=== PATIENT | male | born 1995 | race Caucasian/White ===

== ENCOUNTER 2018-09-08 13:54 | Emergency (ER) | payer OTHER, MEDICAID, SELFPAY ==
[2018-09-08 14:01] VITALS: BP 141/82; PULSE 98; RESP 18; TEMP 36.8; O2SAT 100
--- NOTE | 2018-09-08 14:03 | DI.RAD.S_ITS ---
PROCEDURE: XR HAND LT MIN 3V INDICATIONS: nail embedded in hand TECHNIQUE: 3 views of the hand(s) acquired. COMPARISON: None. FINDINGS: Bones: Radiodensity in the shape of the nail is noted overlying the first digit with the distal tip projecting over the mid metacarpal and the proximal end overlying the distal first phalanx. It appears to be within the soft tissues and no osseous fractures identified. Soft tissues: No suspicious soft tissue calcifications. IMPRESSION: Radiodensity overlying the first digit most consistent with a nail. No visualized fracture. Dictated by: Lolita Juárez M.D. on 09/08/2018 at 13:38 Approved by: Lolita Juárez M.D. on 09/08/2018 at 13:39
[2018-09-08] MEDS: MORPHINE 4 MG/ML INJ IM ×2 (14:05→19:22)
--- NOTE | 2018-09-08 16:22 | ED.SKABFB ---
HPI - Skin/Abscess/Foreign Bdy <TEODORO Piper - Last Filed: 09/08/18 23:06> General Chief complaint: Skin/Abscess/Foreign Body Stated complaint: NAIL STUCK IN THUMB LT HAND Time Seen by Provider: 09/08/18 16:10 Source: patient and family Mode of arrival: ambulatory Limitations: no limitations History of Present Illness HPI narrative: Patient is a 22-year-old nonsmoker male who is and presents with his father for a chief complaint of an injury to his left thumb. 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 The nails do not have barbs. He is not sure when his last tetanus was, but thinks is within the last 10 years. He is not positive. Related Data Previous Rx's Medication Instructions Recorded cephalexin 500 mg PO QID #40 cap 09/08/18 hydrocodone-acetaminophen 1 tab PO Q4-6H PRN #20 tab 09/08/18 Allergies Allergy/AdvReac Type Severity Reaction Status Date / Time No Known Drug Allergies Allergy Verified 09/08/18 17:12 Review of Systems <TEODORO Piper - Last Filed: 09/08/18 23:06> Review of Systems GENERAL: Denies chills, fatigue, malaise, fever, sweats. HEENT: Denies sinus pain, ear pain, sore throat, difficulty swallowing, dizziness. RESPIRATORY: Denies dyspnea, cough, wheezing, hemoptysis, sputum. CARDIOVASCULAR: Denies chest pain, palpitations, orthopnea, edema, GASTROINTESTINAL: Denies nausea, vomiting, abdominal pain, diarrhea, constipation, melena. : Denies dysuria, frequency, incontinence, hematuria, urinary retention. MUSCULOSKELETAL: see HPI SKIN: See HPI NEUROLOGIC: Denies weakness, headache, numbness, change in speech, confusion, seizures, incoordination. PSYCHIATRIC: No concerning psychosocial issues. 12 point review of systems is negative except for those stated above PFSH <TEODORO Piper - Last Filed: 09/08/18 23:06> Social History Smoking Status: Never smoker Social History Smoking Status: Never smoker Exam <TEODORO Piper - Last Filed: 09/08/18 23:06> Narrative Exam Narrative: GENERAL: This is a well-nourished, well-developed patient, in mild distress. HEAD: Atraumatic. Normocephalic. No temporal or scalp tenderness. EYES: Pupils equal round and reactive. Extraocular motions intact. No scleral icterus. No injection or drainage. ENT: Nose without bleeding, purulent drainage or septal hematoma. Throat without erythema, tonsillar hypertrophy or exudate. Uvula midline. Airway patent. NECK: Trachea midline. No JVD or lymphadenopathy. Supple, nontender, no meningeal signs. CARDIOVASCULAR: Regular rate and rhythm RESPIRATORY: no increased respiratory effort. No cough. EXTREMITIES: metal nail in left thumb. Entrance at tip of the thumb, exit wound at the base of thumb on the palmar side. Capillary refill less than 2 sec left thumb. Left thumb is warm. Unable to test range of motion due to foreign body BACK: Nontender without deformity or crepitance. No flank tenderness. NEURO: AOx3. SKIN: puncture wounds as noted left thumb At the tip of the thumb and at the base of the thumb palmar aspect Initial Vital Signs Initial Vital Signs: Vital Signs Temperature 98.2 F 09/08/18 14:01 Pulse Rate 98 H 09/08/18 14:01 Respiratory Rate 18 09/08/18 14:01 Blood Pressure 141/82 H 09/08/18 14:01 Pulse Oximetry 100 09/08/18 14:01 <Kris Pan DO - Last Filed: 09/09/18 01:31> Initial Vital Signs Initial Vital Signs: Vital Signs Temperature 98.2 F 09/08/18 14:01 Pulse Rate 98 H 09/08/18 14:01 Respiratory Rate 18 09/08/18 14:01 Blood Pressure 141/82 H 09/08/18 14:01 Pulse Oximetry 100 09/08/18 14:01 Procedures <TEODORO Piper - Last Filed: 09/08/18 23:06> Foreign Body OTHER Time Out Performed: yes Site: left Description of foreign body: other ( nail) Sedation/Analgesia: other ( Digital block and local anesthetic with 7 cc 2% lidocaine) Technique: manual removal (cleansed with hibiclense and prov. iodine. Removed by Dr Pan as I was unable to so. ) Confirmed by:: direct visualization Complications: none Post-procedure exam: awake, alert Neurovascular: normal distal pulse, normal capillary fill, distal motor function normal and no signs of compartment syndrome Course <LEONARD Piper-BC - Last Filed: 09/08/18 23:06> Orders Ordered: Discontinued Medications Hydrocodone Bitart/Acetaminophen (Sullivan 5/325) 2 tab PO NOW ONE Stop: 09/08/18 18:53 Last Admin: 09/08/18 19:23 Dose: 2 tab Cefazolin Sodium (Ancef Vial) 1 gm IV NOW ONE Stop: 09/08/18 16:41 Last Admin: 09/08/18 19:36 Dose: Not Given Diphtheria/Tetanus/Acell Pertussis (Adacel) 0.5 ml IM .ONCE ONE Stop: 09/08/18 18:31 Last Admin: 09/08/18 18:23 Dose: 0.5 ml Cefazolin Sodium/Dextrose (Ancef) 2 gm in 100 mls @ 200 mls/hr IV NOW ONE Stop: 09/08/18 18:03 Last Infusion: 09/08/18 18:31 Dose: 0 mls/hr Admin: 09/08/18 17:51 Dose: 200 mls/hr Morphine Sulfate (Morphine) 4 mg IM NOW ONE Stop: 09/08/18 16:59 Last Admin: 09/08/18 14:05 Dose: 4 mg Morphine Sulfate (Morphine Sulfate) 4 mg IV NOW ONE Stop: 09/08/18 16:59 Last Admin: 09/08/18 17:15 Dose: 4 mg Morphine Sulfate (Morphine) 4 mg IM NOW ONE Stop: 09/08/18 17:58 Last Admin: 09/08/18 19:22 Dose: 4 mg Vital Signs - 8 hr 09/08/18 19:42 Temperature 97.8 F Pulse Rate 92 H Respiratory Rate 18 Blood Pressure 125/81 Pulse Oximetry 96 <Kris Pan DO - Last Filed: 09/09/18 01:31> Orders Ordered: Discontinued Medications Hydrocodone Bitart/Acetaminophen (Sullivan 5/325) 2 tab PO NOW ONE Stop: 09/08/18 18:53 Last Admin: 09/08/18 19:23 Dose: 2 tab Cefazolin Sodium (Ancef Vial) 1 gm IV NOW ONE Stop: 09/08/18 16:41 Last Admin: 09/08/18 19:36 Dose: Not Given Diphtheria/Tetanus/Acell Pertussis (Adacel) 0.5 ml IM .ONCE ONE Stop: 09/08/18 18:31 Last Admin: 09/08/18 18:23 Dose: 0.5 ml Cefazolin Sodium/Dextrose (Ancef) 2 gm in 100 mls @ 200 mls/hr IV NOW ONE Stop: 09/08/18 18:03 Last Infusion: 09/08/18 18:31 Dose: 0 mls/hr Admin: 09/08/18 17:51 Dose: 200 mls/hr Morphine Sulfate (Morphine) 4 mg IM NOW ONE Stop: 09/08/18 16:59 Last Admin: 09/08/18 14:05 Dose: 4 mg Morphine Sulfate (Morphine Sulfate) 4 mg IV NOW ONE Stop: 09/08/18 16:59 Last Admin: 09/08/18 17:15 Dose: 4 mg Morphine Sulfate (Morphine) 4 mg IM NOW ONE Stop: 09/08/18 17:58 Last Admin: 09/08/18 19:22 Dose: 4 mg Vital Signs - 8 hr 09/08/18 19:42 Temperature 97.8 F Pulse Rate 92 H Respiratory Rate 18 Blood Pressure 125/81 Pulse Oximetry 96 MDM - Skin/Abscess/Foreign Bdy <LEONARD Piper-BC - Last Filed: 09/08/18 23:06> Imaging Data left hand : Radiologist's impression: [address] [address] XRay Report Signed Patient: Leeroy Galloway JMR#: [id number] : 1995Acct:[id number] Age/Sex: 22 / MDate of Service: 09/08/18 Loc: ED Accession Number: [id number] Procedure: XR hand LT min 3V Ordering Provider: Maynor Calles D.O. PROCEDURE: XR HAND LT MIN 3V INDICATIONS: nail embedded in hand TECHNIQUE: 3 views of the hand(s) acquired. COMPARISON: None. FINDINGS: Bones: Radiodensity in the shape of the nail is noted overlying the first digit with the distal tip projecting over the mid metacarpal and the proximal end overlying the distal first phalanx. It appears to be within the soft tissues and no osseous fractures identified. Soft tissues: No suspicious soft tissue calcifications. IMPRESSION: Radiodensity overlying the first digit most consistent with a nail. No visualized fracture. Dictated by: Lolita Juárez M.D. on 09/08/2018 at 13:38 Approved by: Lolita Juárez M.D. on 09/08/2018 at 13:39 [facility] Narrative Medical decision making narrative: The patient is a 22-year-old male who presents after injecting a nail into his thumb. His tetanus was updated. Dr. Griffith from [facility] viewed his x-rays, who confirmed that there is no bone damage and likely no tendon damage And suggested manual removal of the nail. The patient was given IV antibiotics as per Orthopedics and discharged with Keflex. The wound was cleansed several times and the nail was removed without incident. He was neurovascularly intact before and after removal. He was able to move his thumb after removal, the with difficulty Possibly due to swelling and increased volume from lidocaine.I discussed at length that he needs to monitor for signs and symptoms of infection including pus, extending redness and fever. I gave him 10 days worth of cephalexin as per orthopedics. I gave him medication for pain as well. He was given multiple doses of pain medication the emergency department in addition to procedure lidocaine. Patient questions or concerns upon discharge. Discharge Plan Departure Patient Disposition: Home Clinical Impression: Puncture wound of left thumb Qualifiers: Encounter type: initial encounter Qualified Code(s): S61.032A - Puncture wound without foreign body of left thumb without damage to nail, initial encounter Discharge Date/Time: 09/08/18 19:42 Interventions: ED Discharge Assessment Last Done: 09/08/18 19:42 Instructions: How To Perform RICE (Rest, Ice, Compress, Elevate), DI for Puncture Wound Activity Restrictions/Additional Instructions: Please monitor your wound for signs and symptoms of infection including extending redness, pus and swelling. I expect a certain amount of swelling given the injury. Please monitor for fevers. Please be evaluated if at all you are at all concerned about infection. I have given you a prescription for pain medication as well as antibiotics. Please use rest ice compression elevation as well. Prescriptions: New hydrocodone-acetaminophen 5-325 mg tablet 1 tab PO Q4-6H PRN (Reason: pain) Qty: 20 RF: 0 cephalexin 500 mg capsule 500 mg PO QID Qty: 40 RF: 0 Referrals: [facility] [Outside] <Kris Pan DO - Last Filed: 09/09/18 01:31> Cosign ED Attending Geoff Attestation: I was available for consultation during this patient's emergency department encounter
[2018-09-08] MEDS: MORPHINE 5 MG/ML INJ 4 MG IV (17:15)
[2018-09-08 17:19] VITALS: BP 138/83; PULSE 101; RESP 20; O2SAT 99
[2018-09-08] MEDS: CEFAZOLIN 2 GM/100 ML FROZ.PIGGY IV (17:51)
[2018-09-08] MEDS: TET,DIPH,PERTUSS(ACELL),VAC/PF 0.5 ML SYRINGE IM (18:23)
[2018-09-08] MEDS: HYDROCODONE/ACET 5/325 TABLET 2 TAB PO (19:23)
--- NOTE | 2018-09-08 19:40 | PC.NURSE ---
pt with good pulses, able to perform range of motion in his hand. thumb has difficulty with moving due to swelling and pain.
[2018-09-08 19:42] VITALS: BP 125/81; PULSE 92; RESP 18; TEMP 36.6; O2SAT 96
== END 2018-09-08 19:42 | disposition home or self-care (01) ==
PROVIDERS: Emergency Provider Nurse Practitioner Family
DX: S61.032A Puncture wound without foreign body of left thumb without damage to nail, initial encounter (principal); Z23 Encounter for immunization
CPT/HCPCS: 20103; 36591; 73130; 90471; 96365; 96375; 99283; 99284; 90715; J0690; J2270